=== PATIENT | female | born 1995 | race Two or more races ===

== ENCOUNTER 2019-03-04 17:32 | Emergency (ER) | payer OTHER ==
[~2019-03-04] VITALS: Ht 177.8 cm; Wt 68.0 kg
== END 2019-03-04 21:49 | disposition home or self-care (01) ==
LOC: ER 17:32
DX: N30.80 Other cystitis without hematuria (principal)

== ENCOUNTER 2019-07-02 13:47 | Emergency (ER) | payer OTHER ==
[~2019-07-02] VITALS: Ht 177.8 cm; Wt 63.5 kg
== END 2019-07-02 16:11 | disposition home or self-care (01) ==
LOC: ER 13:47
DX: N30.80 Other cystitis without hematuria (principal)

== ENCOUNTER 2019-09-11 08:59 | Outpatient (CLI) | payer OTHER | END 2019-09-11 09:10 | disposition home or self-care (01) | LOC: RAD 08:59 | DX: N20.0 Calculus of kidney (principal) ==

== ENCOUNTER 2019-12-19 16:28 | Emergency (ER) | payer OTHER ==
[~2019-12-19] VITALS: Ht 177.8 cm; Wt 60.8 kg
[2019-12-19] MEDS ORDERED: DOLOGEN CAPLET1 EACH PO (20:45)
[2019-12-19] MEDS ORDERED: TUSNEL LIQUID178 ML PO (20:45)
[2019-12-19] MEDS ORDERED: ZITHROMAX500 MG PO (20:45)
== END 2019-12-19 21:22 | disposition home or self-care (01) ==
LOC: ER 16:28
DX: J06.9 Acute upper respiratory infection, unspecified (principal)

== ENCOUNTER 2019-12-28 12:22 | Emergency (ER) | payer OTHER ==
[~2019-12-28] VITALS: Ht 177.8 cm; Wt 57.2 kg
[~2019-12-28 12:22] MED LIST: DOLOGEN CAPLET1 EACH PO; TUSNEL LIQUID178 ML PO; ZITHROMAX500 MG PO
== END 2019-12-28 18:49 | disposition home or self-care (01) ==
LOC: ER 12:22
DX: N39.0 Urinary tract infection, site not specified (principal)